=== PATIENT | female | born 1970 | race Caucasian/White ===

== ENCOUNTER 2019-12-17 20:58 | Emergency (ER) | payer OTHER ==
[~2019-12-17] VITALS: Ht 160 cm; Wt 122.5 kg
[2019-12-17] MEDS ORDERED: PROAIR HFA8.5 GM INH (21:09)
[2019-12-17] MEDS ORDERED: ALBUTEROL2.5 MG/31 INH (21:09)
[2019-12-17] MEDS ORDERED: AMOXICILLIN 50500 MG PO (21:21)
[2019-12-17] MEDS ORDERED: TYLENOL WITH CO1 TA1 PO (21:21)
[2019-12-17] MEDS ORDERED: LIDOCAINE VISC100 ML SWISH&SPIT (21:21)
[2019-12-17 21:38] VITALS: BP 148/95
== END 2019-12-17 21:39 | disposition home or self-care (01) ==
LOC: M.ERS 20:58
DX: K04.7 Periapical abscess without sinus (principal); J44.9 Chronic obstructive pulmonary disease, unspecified; Z90.49 Acquired absence of other specified parts of digestive tract; Z98.51 Tubal ligation status

== ENCOUNTER 2019-12-18 15:10 | Emergency (ER) | payer OTHER ==
[~2019-12-18] VITALS: Ht 160 cm; Wt 122.5 kg
[~2019-12-18 15:10] MED LIST: ALBUTEROL2.5 MG/31 INH; AMOXICILLIN 50500 MG PO; LIDOCAINE VISC100 ML SWISH&SPIT; PROAIR HFA8.5 GM INH; TYLENOL WITH CO1 TA1 PO
[2019-12-18 15:37] VITALS: BP 132/93
== END 2019-12-18 15:38 | disposition home or self-care (01) ==
LOC: M.ERS 15:10
DX: K04.7 Periapical abscess without sinus (principal); R22.0 Localized swelling, mass and lump, head; J44.9 Chronic obstructive pulmonary disease, unspecified; Z90.49 Acquired absence of other specified parts of digestive tract; Z98.51 Tubal ligation status

== ENCOUNTER 2020-04-17 17:22 | Emergency (ER) | payer OTHER ==
[~2020-04-17] VITALS: Ht 160 cm; Wt 117.9 kg
[2020-04-17] MEDS ORDERED: PENICILLIN VK500 M1 PO (20:21)
[2020-04-17 20:27] VITALS: BP 180/90
== END 2020-04-17 20:28 | disposition home or self-care (01) ==
LOC: M.ERS 17:22
DX: K02.9 Dental caries, unspecified (principal); J44.9 Chronic obstructive pulmonary disease, unspecified; Z90.49 Acquired absence of other specified parts of digestive tract; Z98.51 Tubal ligation status

== ENCOUNTER 2020-12-06 05:22 | Emergency (ER) | payer OTHER ==
[~2020-12-06] VITALS: Ht 157.5 cm; Wt 122.5 kg
[~2020-12-06 05:22] MED LIST changes: +PENICILLIN VK500 M1 PO
[2020-12-06 05:30] VITALS: BP 175/117
[2020-12-06] MEDS ORDERED: TRAMADOL 50 MG50 MG PO (05:57)
[2020-12-06] MEDS ORDERED: PENICILLIN VK250 MG PO (05:57)
== END 2020-12-06 06:03 | disposition home or self-care (01) ==
LOC: M.ERS 05:22
DX: K08.89 Other specified disorders of teeth and supporting structures (principal); J44.9 Chronic obstructive pulmonary disease, unspecified; F17.210 Nicotine dependence, cigarettes, uncomplicated; Z90.49 Acquired absence of other specified parts of digestive tract; Z98.51 Tubal ligation status

== ENCOUNTER 2021-03-30 19:27 | Emergency (ER) | payer OTHER ==
[~2021-03-30] VITALS: Ht 154.9 cm; Wt 98.0 kg
[~2021-03-30 19:27] MED LIST changes: +PENICILLIN VK250 MG PO; +TRAMADOL 50 MG50 MG PO
[2021-03-30 20:11] LABS: ABSOLUTE BASOPHILS 0.1 thou/uL (0.0-0.2); ABSOLUTE EOSINOPHILS 0.2 thou/uL (0.0-0.7); ABSOLUTE LYMPHOCYTES 2.8 thou/uL (0.8-5.3); ABSOLUTE MONOCYTES 0.7 thou/uL (0.0-1.2); ABSOLUTE NEUTROPHILS 4.5 thou/uL (1.6-8.1); BASOPHILS 1.1 %; HEMATOCRIT 49.9 % (37.0-47.0); HEMOGLOBIN 16.8 gm/dL (12.0-15.0); MCH 30.3 pg (26.0-34.0); MCHC 33.8 g/dL (28.0-37.0); MCV 89.6 fL (80.0-100.0); MONOCYTES 8.6 %; MPV 7.4 fl. (7.2-11.1); NUCLEATED RBCS 0 /100WBC; PLATELET COUNT* 306 thou/uL (150-400); POLYS 54.3 %; RBC 5.56 mil/uL (4.20-5.00); RDW-CV 13.9 % (10.5-14.5); WBC 8.3 thou/uL (4.0-11.0)
[2021-03-30 20:22] LABS: CALCIUM 8.9 mg/dL (8.5-10.1); CREATININE 0.9 mg/dL (0.6-1.3); POTASSIUM 4.1 mmol/L (3.5-5.1)
[2021-03-30] MEDS ORDERED: AYGESTIN 5 MG TA5 M1 PO (20:32)
[2021-03-30 20:36] VITALS: BP 157/105
== END 2021-03-30 20:37 | disposition home or self-care (01) ==
LOC: M.ERS 19:27
PROVIDERS: Emergency Medicine
DX: N93.8 Other specified abnormal uterine and vaginal bleeding (principal); J44.9 Chronic obstructive pulmonary disease, unspecified; F17.210 Nicotine dependence, cigarettes, uncomplicated; Z90.49 Acquired absence of other specified parts of digestive tract; Z98.51 Tubal ligation status; Z79.899 Other long term (current) drug therapy

== ENCOUNTER 2021-04-11 20:37 | Emergency (ER) | payer OTHER ==
[~2021-04-11] VITALS: Ht 154.9 cm; Wt 113.4 kg
[~2021-04-11 20:37] MED LIST changes: +AYGESTIN 5 MG TA5 M1 PO
[2021-04-11 20:51] VITALS: BP 144/82
[2021-04-11 21:00] LABS: ABSOLUTE EOSINOPHILS 0.3 thou/uL (0.0-0.7); ABSOLUTE LYMPHOCYTES 2.9 thou/uL (0.8-5.3); ABSOLUTE MONOCYTES 0.9 thou/uL (0.0-1.2); ABSOLUTE NEUTROPHILS 6.1 thou/uL (1.6-8.1); BASOPHILS 0.2 %; HEMATOCRIT 46.5 % (37.0-47.0); HEMOGLOBIN 15.7 gm/dL (12.0-15.0); LYMPHOCYTES 28.6 %; MCH 30.2 pg (26.0-34.0); MCHC 33.8 g/dL (28.0-37.0); MCV 89.4 fL (80.0-100.0); MONOCYTES 8.8 %; MPV 7.3 fl. (7.2-11.1); NUCLEATED RBCS 0 /100WBC; PLATELET COUNT* 315 thou/uL (150-400); POLYS 59.4 %; RDW-CV 14.2 % (10.5-14.5); WBC 10.2 thou/uL (4.0-11.0)
[2021-04-11] MEDS ORDERED: NORETHINDRONE AC5 M1 PO (21:04)
[2021-04-11 21:09] LABS: CALCIUM 8.9 mg/dL (8.5-10.1); CREATININE 0.9 mg/dL (0.6-1.3); POTASSIUM 4.1 mmol/L (3.5-5.1)
== END 2021-04-11 21:11 | disposition home or self-care (01) ==
LOC: M.ERS 20:37
PROVIDERS: Emergency Medicine
DX: J44.9 Chronic obstructive pulmonary disease, unspecified (principal); F17.210 Nicotine dependence, cigarettes, uncomplicated; Z87.42 Personal history of other diseases of the female genital tract; Z90.49 Acquired absence of other specified parts of digestive tract; Z98.51 Tubal ligation status; Z79.899 Other long term (current) drug therapy